=== PATIENT | female | born 1995 | race Caucasian/White ===

== ENCOUNTER 2020-11-26 20:23 | Inpatient (IN) | payer MEDICARE, SELFPAY ==
[2020-11-26 20:31] VITALS: BP 120/74; PULSE 72; RESP 18; TEMP 36.8; O2SAT 100; BMI 23.9
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
--- NOTE | 2020-11-26 20:32 | ECG_ITS ---
[facility] Test Date: 2020-11-26 Pat Name: Luz Maria Knott Department: Room: Gender: Female Compensation Intern: : 1995 Requested By: Miky Juarez Order Number: [id number] Derian MD: Elena Shelton M.D. Measurements Intervals [place] Rate: 64 P: -19 NV: 196 QRS: 52 QRSD: 88 T: 41 QT: 394 QTc: 409 Interpretive Statements SINUS RHYTHM POSSIBLE RIGHT VENTRICULAR CONDUCTION DELAY [RSR (QR) IN V1/V2] No previous ECG available for comparison Electronically Signed On 11-26-2020 23:10:04 CDT by Elena Shelton M.D. [id number]
[2020-11-26 20:47] LABS: Basophils # 0.1 10^3/uL (0.0-0.1); Basophils % 0.5 %; Eosinophils # 0.1 10^3/uL (0.0-0.8); Hematocrit 38.9 % (37.0-47.0); Hemoglobin 13.3 g/dL (11.5-15.3); Lymphocytes # 1.5 10^3/uL (0.8-4.8); Lymphocytes % 12.6 %; Mean Corpuscular HGB Conc 34.2 g/dL (30.0-36.0); Mean Corpuscular Hemoglobin 30.3 pg (28.0-34.0); Mean Corpuscular Volume 88.6 fl (81-99); Mean Platelet Volume 9.7 fL (7.4-10.4); Monocytes # 0.6 10^3/uL (0.2-0.9); Monocytes % 5.5 %; Neutrophils # 9.21 10^3/uL (1.8-7.7); Neutrophils % 80.1 %; Nucleated Red Blood Cells % 0 %; Platelet Count 294 10^3/cmm (130-400); Red Blood Count 4.39 10^6/uL (4.1-5.3); Red Cell Distribution Width 12.9 % (12.1-15.1); White Blood Count 11.5 10^3/uL (4.0-10.0)
[2020-11-26 21:13] LABS: Alanine Aminotransferase 8 U/L (0-33); Albumin Level 4.2 g/dL (3.5-5.2); Alkaline Phosphatase 68 IU/L (35-105); Anion Gap 15.8 (5-19); Aspartate Amino Transferase 14 U/L (0-32); Blood Urea Nitrogen 10 mg/dL (6-20); Calcium 8.9 mg/dL (8.5-10.5); Carbon Dioxide 24 mmol/L (22-29); Chloride 100 mmol/L (98-107); Globulin 3.4 g/dL (1.3-4.6); Glomerular Filtration Rate 101.1 mL/min (90-130); Glucose 93 mg/dL (65-115); Osmolality Calculated 281 mOsm/kg (285-295); Potassium 3.8 mmol/L (3.5-5.1); Sodium 136 mmol/L (136-145); Total Bilirubin 0.4 mg/dL (0.15-1.2); Total Protein 7.6 g/dL (6.6-8.7)
[2020-11-26 21:14] LABS: Acetaminophen < 5.0 ug/mL (10-30); Alcohol Level < 10 mg/dL (0-10); Salicylate < 0.3 mg/dL (3-10)
[2020-11-26 21:18] LABS: HCG Qualitative Urine. Negative (Negative)
[2020-11-26 21:26] LABS: Amphetamines Screen Urine Negative (Negative); Barbiturates Screen Urine Negative (Negative); Benzodiazepines Screen Urine Negative (Negative); Cocaine Screen Urine Negative (Negative); Opiate Screen Urine Negative (Negative); PCP Screen Urine Negative (Negative); THC Screen Urine Positive (Negative)
[2020-11-26 23:26] VITALS: RESP 18; TEMP 36.8; O2SAT 100
[2020-11-27] MEDS: quetiapine 100 mg Tablet PO ×2 (00:21→20:48)
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
[2020-11-27 05:50] VITALS: RESP 18; TEMP 36.8
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
[2020-11-27] MEDS: fluoxetine 20 mg Capsule PO (09:41)
[2020-11-27] MEDS: OLANZapine 5 mg TABLET PO (09:41)
[2020-11-27] MEDS: ARIPiprazole 10 mg Tablet 5 MG PO (09:42)
--- NOTE | 2020-11-27 11:42 | PC.NURSE ---
Patient currently in room lying in bed with eyes closed, resting, respirations even and non-labored.
[2020-11-27 14:00] VITALS: TEMP 37
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
[2020-11-27] MEDS: OLANZapine 5 mg ODT PO (17:56)
[2020-11-27] MEDS: cetylpyridinium Lozenge 1 EACH MUCOUS MEM (19:09)
[2020-11-27 20:23] VITALS: BP 111/76; PULSE 81; RESP 18; TEMP 36.9; O2SAT 99
[2020-11-28 06:00] VITALS: PULSE 85; RESP 18; TEMP 36.6; O2SAT 98
[2020-11-28] MEDS: OLANZapine 5 mg TABLET PO (10:02)
[2020-11-28] MEDS: fluoxetine 20 mg Capsule PO (10:02)
[2020-11-28] MEDS: ARIPiprazole 10 mg Tablet 5 MG PO (10:03)
[2020-11-28 14:00] VITALS: BP 108/75; PULSE 74; RESP 18; TEMP 36.8; O2SAT 98
--- NOTE | 2020-11-28 15:18 | P.PN_ITS ---
Subjective NPU Subjective: Interval history: Patient presents today continuing to that there is any reason for her to be in the hospital. I reviewed the affidavits with her and she did not have a no answer for why she was behaving like that and seemed to suggest that was not an accurate reflection of what was going she continued to endorse a desire to be discharged. We discussed the fact that she is on a 96-hour hold and she has a guardian. Mental Status Exam MSE Comments: This is a well-nourished, well-developed, white male, in hospital scrubs, who is less disheveled with limited eye contact. No abnormal movements. Semi-cooperative with exam in mild distress. Speech was decreased rate and volume. Mood described as fine; affect irritable. Thought process, mostly organized. Thought content: patient denied any suicidal or homicidal ideation, there were no delusions reported or noted, patient denied any auditory or visual hallucinations. Attention and concentration were mostly intact, and memory was somewhat reliable, but none were formally tested. He is alert and oriented times three. Insight and judgment limited. Impulse control impaired. Vitals/I&O/Wt Last Vital Signs Temp 98.3 F 11/28/20 14:00 Pulse 74 11/28/20 14:00 Resp 18 11/28/20 14:00 BP 108/75 11/28/20 14:00 Pulse Ox 98 11/28/20 14:00 Weight last 48 hrs Weight 61.235 kg Data NPU : 11/26/20 20:37 11/26/20 20:37 A&P Additional A&P Information (1) Impulse control disorder in adult: (2) Cannabis abuse: Additional A&P Information This is a 25-year-old, white female, with a long history of mental health issues with multiple hospitalizations with significant issues with impulse control and aggression, self-reported autism with no reported genetic loading for mental health or addiction issues, who presents positive for marijuana, but denying any issues leading to her hospitalization. RECOMMENDATION AND PLAN: 1. Continue current medication. 2. Encourage individual, group, and milieu therapy. 3. Continue q-15 minute checks for safety. 4. Encourage sober living treatment, after discharge, at the highest level of care to which the patient is willing to commit. 5. Will contact guardian to try to get collateral information on this presentation. Involuntary Hold Information 96 Hour Hold: 96 Hour Involuntary Admission: Yes 96 Hour Hold Ending Date: 12/02/20 96 Hour Hold Ending Time: 21:58 Attestations NPU Medical Necessity Statement*: Inpatient hospitalization is medically necessary and the clinically appropriate intervention, at this time. We will monitor medications and make changes as indicated. Likely length of stay is 3-5 days. Coding Level of Care Code Acute Equipment Washer for [facility]
[2020-11-28] MEDS: OLANZapine 5 mg ODT PO (15:44)
--- NOTE | 2020-11-28 17:42 | PC.NURSE ---
PATIENT MOTHER REQUESTS THAT SHE BE INCLUDED IN D/C PLAN OF CARE. SHE REPORTS THAT SHE FEELS THAT THE PATIENT WOULD BENEFIT MORE FROM INJECTABLE MEDICATION AND OUTPATIENT PLANNING. SHE DESIRES A PLAN OF CARE SO THAT THE PATIENT CAN MOST SUCCESSFUL. SHE DESIRES FOR THE PATIENT TO HAVE ASSISTED CARE WITHIN THE [facility] WITH [facility].
[2020-11-28] MEDS: nicotine 2 mg Gum BUCCAL (19:13)
[2020-11-28] MEDS: quetiapine 100 mg Tablet PO (21:15)
[2020-11-28 22:00] VITALS: BP 112/74; PULSE 73; RESP 18; TEMP 37; O2SAT 98
[2020-11-29 06:00] VITALS: BP 134/89; PULSE 65; RESP 17; TEMP 36.7; O2SAT 97
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
[2020-11-29] MEDS: ARIPiprazole 10 mg Tablet 5 MG PO (10:12)
[2020-11-29] MEDS: fluoxetine 20 mg Capsule PO (10:13)
[2020-11-29] MEDS: nicotine 2 mg Gum BUCCAL (10:48)
[2020-11-29 14:00] VITALS: BP 117/83; PULSE 79; RESP 18; O2SAT 96
[2020-11-29] MEDS: OLANZapine 5 mg ODT PO (14:39)
[2020-11-29] MEDS: quetiapine 100 mg Tablet PO (20:50)
[2020-11-29 20:54] VITALS: BP 102/56; PULSE 62; RESP 16; TEMP 37; O2SAT 98
[2020-11-29] MEDS: trazodone 50 mg Tablet PO (23:13)
[2020-11-29] MEDS: hyDROXYzine 25 mg Capsule 50 MG PO (23:13)
--- NOTE | 2020-11-30 03:04 | PC.NURSE ---
PRN vistaril, zyprexa, and trazadone given for anxiety and insomnia. Patient tolerated well. Will continue to monitor.
[2020-11-30 06:00] VITALS: BP 102/56; PULSE 62; RESP 16; TEMP 37; O2SAT 98
--- NOTE | 2020-11-30 09:55 | P.PN_ITS ---
Subjective NPU Subjective: Interval history: Patient presents today continuing to have her focus primarily be on being discharged. She is been in conversation with her mother mother reported to staff that she wanted to make sure all the outpatient connections were appropriate and medications were available at the time of discharge. We discussed the risk benefits and alternatives of meeting with the treatment team in the morning to make sure the about it and if he is across and she understood and reluctantly agreed to proceed as documented in this note. Mental Status Exam MSE Comments: This is a well-nourished, well-developed, white male, in hospital scrubs, who is less disheveled with limited eye contact. No abnormal movements. More cooperative with exam in mild distress. Speech was more normal rate and volume. Mood described as okay; affect less irritable. Thought process, mostly organized. Thought content: patient denied any suicidal or homicidal ideation, there were no delusions reported or noted, patient denied any auditory or visual hallucinations. Attention and concentration were mostly intact, and memory was somewhat reliable, but none were formally tested. He is alert and oriented times three. Insight and judgment limited. Impulse control limited. Vitals/I&O/Wt Last Vital Signs Temp 98.6 F 11/30/20 06:00 Pulse 62 11/30/20 06:00 Resp 16 11/30/20 06:00 BP 102/56 11/30/20 06:00 Pulse Ox 98 11/30/20 06:00 Weight last 48 hrs Weight 61.235 kg Data NPU : 11/26/20 20:37 11/26/20 20:37 A&P Additional A&P Information (1) Impulse control disorder in adult: (2) Cannabis abuse: Additional A&P Information This is a 25-year-old, white female, with a long history of mental health issues with multiple hospitalizations with significant issues with impulse control and aggression, self-reported autism with no reported genetic loading for mental health or addiction issues, who presents positive for marijuana, but denying any issues leading to her hospitalization. RECOMMENDATION AND PLAN: 1. Continue current medication. 2. Encourage individual, group, and milieu therapy. 3. Continue q-15 minute checks for safety. 4. Encourage sober living treatment, after discharge, at the highest level of care to which the patient is willing to commit. Involuntary Hold Information 96 Hour Hold: 96 Hour Involuntary Admission: Yes 96 Hour Hold Ending Date: 12/02/20 96 Hour Hold Ending Time: 21:58 Attestations NPU Medical Necessity Statement*: Inpatient hospitalization is medically necessary and the clinically appropriate intervention, at this time. We will monitor medications and make changes as indicated. Likely length of stay is 1-3 days. Coding Level of Care Code Acute Certified Prosthetist/Orthotist for [facility]
[2020-11-30] MEDS: fluoxetine 20 mg Capsule PO (09:58)
[2020-11-30] MEDS: ARIPiprazole 10 mg Tablet 5 MG PO (09:58)
[2020-11-30] MEDS: nicotine 2 mg Gum BUCCAL ×2 (11:21→18:43)
[2020-11-30 14:00] VITALS: RESP 16
[2020-11-30 21:24] VITALS: BP 110/62; PULSE 60; RESP 17; TEMP 36.8; O2SAT 96
[2020-11-30] MEDS: quetiapine 100 mg Tablet PO (21:26)
[2020-11-30] MEDS: trazodone 50 mg Tablet PO (21:26)
[2020-11-30] MEDS: hyDROXYzine 25 mg Capsule 50 MG PO (21:26)
--- NOTE | 2020-11-30 21:30 | PC.NURSE ---
pt requested sleep and anxiety meds, trazodone 50mg po for sleep and vistaril 50mg po for anxiety given.
--- NOTE | 2020-11-30 21:32 | PC.NURSE ---
charge nurse justin notified of blood pressure
--- NOTE | 2020-12-01 | PC.NURSE ---
pt resting quietly with both eyes closed
--- NOTE | 2020-12-01 02:20 | PC.NURSE ---
Elevated BP 150/100, reported by TRAFFIC POLICE OFFICER, no additional complaints at this time, will notify the physician and recheck this vital sign when she wakes up.
[2020-12-01 06:00] VITALS: BP 106/72; PULSE 66; RESP 16; TEMP 37.1; O2SAT 98
[2020-12-01] MEDS: fluoxetine 20 mg Capsule PO (08:03)
[2020-12-01] MEDS: ARIPiprazole 10 mg Tablet 5 MG PO (08:03)
[2020-12-01] MEDS: nicotine 2 mg Gum BUCCAL (11:09)
[2020-12-01 14:00] VITALS: BP 110/73; PULSE 65; RESP 18; TEMP 36.6; O2SAT 97
--- NOTE | 2020-12-01 14:12 | NPU.GN ---
[facility] Topic:Depression BINGO General Mood of Group: General mood was talkative. Seemed like most everyone in the group was talkative. This group was exceptionable large. They seemed to all want to speak at the same time. This patient came to group on time and dressed appropriate with good hygiene. This patient did participate and did ask questions. She was no too involved but did do a lot of listening.
[2020-12-01] MEDS: hyDROXYzine 25 mg Capsule 50 MG PO (17:51)
--- NOTE | 2020-12-01 17:52 | PC.NURSE ---
Addendum entered by Bekah Monzon LPN 12/01/20 18:40: PRN MED EFFECTIVE NO FURTHER C/O ANXIETY CURRENTLY, PT IN DAY ROOM COLORING PICTURES Original Note: PRN VISTARIL 50 MG GIVEN PO PER PT C/O STATED ANXIETY. WILL CONT TO MONITOR
--- NOTE | 2020-12-01 18:04 | PM.NPN ---
Subjective NPU Subjective: Interval history: Patient presents today reporting that she is feeling a lot better. We discussed her mom's desire that she be on the Abilify injection she will have reports being on the injection previously and not really wanting to be on it again. We had a short discussion about her mother being her guardian and ultimately asked may be needing to force her to take the injection. She agreed to sleep on it and that we would discuss this in the morning after possible chance to talk to her mother. We also discussed the likely plan for discharge in the morning and working with the treatment team for options for follow-up and aftercare. Mental Status Exam MSE Comments: This is a well-nourished, well-developed, white female, in hospital scrubs, with adequate grooming and eye contact. No abnormal movements. More cooperative with exam in no acute distress. Speech was more normal rate and volume. Mood described as okay; affect less irritable. Thought process, mostly organized. Thought content: patient denied any suicidal or homicidal ideation, there were no delusions reported or noted, patient denied any auditory or visual hallucinations. Attention and concentration were mostly intact, and memory was somewhat reliable, but none were formally tested. She is alert and oriented times three. Insight and judgment limited, but improving. Impulse control limited. Vitals/I&O/Wt Last Vital Signs Temp 97.9 F 12/01/20 14:00 Pulse 65 12/01/20 14:00 Resp 18 12/01/20 14:00 BP 110/73 12/01/20 14:00 Pulse Ox 97 12/01/20 14:00 Weight last 48 hrs Weight 61.235 kg Data NPU : 11/26/20 20:37 11/26/20 20:37 A&P Additional A&P Information (1) Impulse control disorder in adult: (2) Cannabis abuse: Additional A&P Information This is a 25-year-old, white female, with a long history of mental health issues with multiple hospitalizations with significant issues with impulse control and aggression, self-reported autism with no reported genetic loading for mental health or addiction issues, who presents positive for marijuana, but denying any issues leading to her hospitalization. RECOMMENDATION AND PLAN: 1. Continue current medication. 2. Encourage individual, group, and milieu therapy. 3. Continue q-15 minute checks for safety. 4. Encourage sober living treatment, after discharge, at the highest level of care to which the patient is willing to commit. Involuntary Hold Information 96 Hour Hold: 96 Hour Involuntary Admission: Yes 96 Hour Hold Ending Date: 12/02/20 96 Hour Hold Ending Time: 21:58 Attestations NPU Medical Necessity Statement*: Inpatient hospitalization is medically necessary and the clinically appropriate intervention, at this time. We will monitor medications and make changes as indicated. Likely length of stay is 1-2 days. Coding Level of Care Code Acute Dormitory Counselor for [facility]
[2020-12-01 21:06] VITALS: BP 128/86; PULSE 83; RESP 17; TEMP 36.7; O2SAT 97
[2020-12-01] MEDS: trazodone 50 mg Tablet PO (22:18)
[2020-12-01] MEDS: acetaminophen 325 mg Tablet 650 MG PO (22:18)
[2020-12-01] MEDS: quetiapine 100 mg Tablet PO (22:19)
[2020-12-02] MEDS: nicotine 2 mg Gum BUCCAL (04:23)
[2020-12-02 06:00] VITALS: BP 128/76; PULSE 86; RESP 18; TEMP 37; O2SAT 97
[2020-12-02] MEDS: fluoxetine 20 mg Capsule PO (08:44)
[2020-12-02] MEDS: ARIPiprazole 10 mg Tablet 5 MG PO (08:44)
--- NOTE | 2020-12-02 10:54 | NPU.GN ---
[facility] Topic: Sail Boat/ Mechanisms General Mood of Group: Luz Maria attended group today and was very talkative. Luz Maria was in good spirits and was making things to put in her hair out of paper. She was very artistic today. Luz Maria was very talkative with this bid writer. Luz Maria seemed in good spirits today.
--- NOTE | 2020-12-02 12:58 | DCPLANNER ---
IMM completed on 12/02/2020 @ 0081. Copy of rights given to pt.
[2020-12-02 14:00] VITALS: BP 101/69; PULSE 62; RESP 17; TEMP 36.9; O2SAT 98
[2020-12-02 15:03] VITALS: BP 128/76; PULSE 86; RESP 18; TEMP 37; O2SAT 97
[2020-12-02] MEDS: ARIPiprazole Maintena 400 MG IM (15:25)
--- NOTE | 2020-12-02 15:25 | PC.NURSE ---
AD MAINTENA 400 MG GIVEN ORDERED BY PHYSICIAN. INJECTION GIVEN IN LEFT DELTOID. LOT [id number] Dec 2022
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
== END 2020-12-02 15:36 | disposition home or self-care (01) | DRG 886 ==
LOC: ER 20:33 → NP 22:24
PROVIDERS: Emergency Medicine; Admitting Provider Psychiatry & Neurology Child & Adolescent Psychiatry; Emergency Provider Emergency Medicine; Visit Provider Psychiatry & Neurology Psychiatry
DX: F63.9 Impulse disorder, unspecified (principal); F12.10 Cannabis abuse, uncomplicated
CPT/HCPCS: 80053; 80306; 80307; 81025; 85025; 90715; 93005; 96372; 97150; 97165; 99285

== ENCOUNTER → 2021-01-12 13:17 | Outpatient (BNVA) | payer MEDICARE, SELFPAY | PROVIDERS: Visit Provider Family Medicine | DX: J02.9 Acute pharyngitis, unspecified (principal); F63.9 Impulse disorder, unspecified; F17.200 Nicotine dependence, unspecified, uncomplicated | CPT/HCPCS: 87071; 87880 ==

== ENCOUNTER → 2022-03-11 13:28 | Outpatient (BNVA) | payer MEDICARE, SELFPAY | PROVIDERS: PCP Family Medicine; Visit Provider Family Medicine | DX: Z13.220 Encounter for screening for lipoid disorders (principal); Z13.6 Encounter for screening for cardiovascular disorders; Z13.1 Encounter for screening for diabetes mellitus; Z51.81 Encounter for therapeutic drug level monitoring | CPT/HCPCS: 80053; 80061; 83036; 84443; 85025 ==

== ENCOUNTER → 2023-02-24 12:36 | Outpatient (BNVA) | payer OTHER, SELFPAY | PROVIDERS: PCP Family Medicine; Visit Provider Emergency Medicine | DX: R68.89 Other general symptoms and signs (principal) | CPT/HCPCS: 87400; 87426 ==

== ENCOUNTER → 2023-11-01 08:30 | Outpatient (BNVA) | payer OTHER, SELFPAY | PROVIDERS: PCP Family Medicine; Visit Provider Family Medicine | DX: Z51.81 Encounter for therapeutic drug level monitoring (principal); F31.9 Bipolar disorder, unspecified; Z13.1 Encounter for screening for diabetes mellitus; Z13.6 Encounter for screening for cardiovascular disorders | CPT/HCPCS: 80053; 80061; 84443; 85025 ==

== ENCOUNTER → 2024-06-04 11:00 | Outpatient (BNVA) | payer OTHER, SELFPAY | PROVIDERS: PCP Family Medicine; Visit Provider Family Medicine | DX: Z13.1 Encounter for screening for diabetes mellitus (principal); F31.9 Bipolar disorder, unspecified; Z51.81 Encounter for therapeutic drug level monitoring; Z78.9 Other specified health status; Z68.33 Body mass index [BMI] 33.0-33.9, adult | CPT/HCPCS: 80048; 83036; 85025 ==

== ENCOUNTER → 2024-10-01 15:28 | Outpatient (BNVA) | payer OTHER, SELFPAY | PROVIDERS: PCP Family Medicine; Visit Provider Nurse Practitioner | DX: J02.9 Acute pharyngitis, unspecified (principal) | CPT/HCPCS: 87071; 87880 ==

== ENCOUNTER → 2024-10-31 15:15 | Outpatient (BNVA) | payer OTHER, SELFPAY | PROVIDERS: PCP Family Medicine; Visit Provider Family Medicine | DX: Z12.4 Encounter for screening for malignant neoplasm of cervix (principal) | CPT/HCPCS: 87624 ==

== ENCOUNTER 2025-01-24 05:56 | Day surgery (SDC) | payer OTHER, SELFPAY ==
[2025-01-24] VITALS (12 sets, daily range): BP systolic 125–157; BP diastolic 87–109; PULSE 71–89; RESP 15–18; TEMP 36.1–36.3; O2SAT 98–100; BMI 33.5
--- NOTE | 2025-01-24 06:46 | P.ANESASSM_ITS ---
Pre-Anesthetic Assessment Height/Weight: Height 1.68 m Weight 94.347 kg Temp Pulse Resp BP Pulse Ox O2 Del Method 97.0 F L 72 18 137/87 99 Room Air 01/24/25 06:14 01/24/25 06:14 01/24/25 06:14 01/24/25 06:14 01/24/25 06:14 01/24/25 06:14 Operation Date: 01/24/25 07:10 Proposed Procedures p Endocervical Curettage 32704 R87.619 R20.3(Not Applicable) - Alpesh Villasenor MD Familial anesthetic complications: None Was Beta Allyson taken within 24 hours: N/A Was Clonidine taken within 24 hours: N/A Last intake: Intake Last Liquid Date 01/23/25 Last Liquid Time 22:00 Last Solid Date 01/23/25 Last Solid Time 22:00 Social Tobacco and No alcohol Exam alert, oriented x 3, clear to auscultation bilaterally and regular rate & rhythm Anesthetic Plan ASA status: 2 Anesthesia: General Risk of > 500 ml blood loss (7ml/kg in children): No Other Pertinent Information Hx of syncopal episode with prolonged QT due to dehydration a few years ago, no repeat instances and all subsequent EKGs normal Medications/Allergies Home Medications ?Medication ?Instructions ?Recorded ?Confirmed ?Last Taken ?Type lorazepam 0.5 mg tablet (Ativan) 0.5 mg PO DAILY 30 da ys #30 tabs 08/21/24 01/23/25 Unknown Rx quetiapine 100 mg tablet 100 mg PO QDAY 90 days #90 t abs 08/21/24 01/23/25 01/22/25 Rx aripiprazole 30 mg tablet 30 mg PO .qhs 90 days #90 ta bs 09/20/24 01/23/25 01/22/25 Rx Allergies Allergy/AdvReac Type Severity Reaction Status Date / Time azithromycin Allergy Unknown Verified 01/23/25 10:39 cephalexin (From Keflex) Allergy Unknown Verified 01/23/25 10:39 Current Medications Generic Name Dose Route Start Last Admin Trade Name Freq PRN Reason Stop Dose Admin Sodium Chloride 1,000 mls @ 30 mls/hr 01/24/25 06:15 01/24/25 06:35 Sodium Chloride 0.9% IV 01/25/25 06:14 30 mls/hr .Q24H JAS Administration PFSH Anesthesia Medical History (Updated 11/07/24 @ 13:09 by Ambar Solano MD) Bipolar disorder with psychotic features Autism Bipolar disorder History of seizure Psychiatric care Family History Grandfather Cancer maternal- lung cancer Hypertension maternal Stroke Grandmother Cancer maternal- lung Diabetes maternal great grandmother Denies family history of Clotting disorder Bleeding disorder Social History Smoking and tobacco/nicotine status: current every day tobacco/nicotine user e- cigarettes E-Cigarette Details: vaporizer device Quit status (tobacco/nicotine): not considering quitting
--- NOTE | 2025-01-24 07:15 | W.PM.OPSUD ---
Surgery/Procedure H&P Update DATE OF PROCEDURE: January 24, 2025 DATE H&P PERFORMED: 12/07/24 H&P UPDATE INFORMATION: I have reviewed H&P completed within last 30 days, Changes to prior documentation as noted here (Heart and lungs examined preop and within normal range. No vaginal bleeding.) and Risks and benefits of the procedure reviewed PREOP DIAGNOSIS: Abnormal endocervical cells, poor tolerance to pain PRIMARY INDICATION FOR PROCEDURE: Galandular dysplasia ro adenocarcinoma PLANNED PROCEDURE: Operation Date: 01/24/25 07:10 Proposed Procedures p Endocervical Curettage 58149 R87.619 R20.3(Not Applicable) - Alpesh Villasenor MD Related Problem List Diagnoses 1. Atypical glandular cells of undetermined significance (RUBEN) on cervical Pap smear: 2. Low pain threshold: 3. Atypical endocervical cells on Pap smear: 4. SOFIYA (generalized anxiety disorder):
[2025-01-24] MEDS: lidocaine-epi 2% PF 1:200,000 20 mL SDV XX (07:56)
[2025-01-24] MEDS: doxycycline 100 MG in sodium chloride 0.9% (plus) 100 ML IV (07:58)
--- NOTE | 2025-01-24 08:44 | PM.OP2 ---
Brief Operative Note Date of procedure: 01/24/25 Estimated blood loss (mL): 60 Complications: None
--- NOTE | 2025-01-24 08:58 | PM.OP2 ---
Brief Operative Note Date of procedure: 01/24/25 Pre-op diagnosis: Endocervical glandular dysplasia, low pain tolerance Post-op diagnosis: same (additional cervical dysplasia/lesion) Procedure Done: Cervical 12 o clock bx of lesion, endocervical and seperate endometrial sampling by curettage. Surgeon: Alpesh Villasenor Estimated blood loss (mL): 60 Complications: None Post-op Plan: To recovery, and wait for pathology Dx. Condition: stable Disposition: same day
[2025-01-24 14:44] LABS: OR HCG Qualitative Urine Negative (Negative)
--- NOTE | 2025-01-24 15:33 | ANE.PACU2 ---
Inpatient post-anesthesia follow up: Airway intact: Yes Vital signs: Temperature 97.4 F Pulse Rate 72 Respiratory Rate 15 Blood Pressure 139/94 Pulse Oximetry 100 Oxygen Delivery Me thod Room Air Oxygen Flow Rate Fraction of Inspir ed Oxygen Hydration adequate: Yes Nausea and vomiting: No Pain level: 1 Mental status: Baseline
--- NOTE | 2025-01-24 17:45 | P.OP_ITS ---
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 Due to low pain tolerance and patient declining office- based colposcopy, the decision was made to proceed with examination under anesthesia with endocervical curettage and directed biopsies as indicated. 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 Examination under anesthesia 2. Endocervical curettage 3. Endometrial curettage 4. Ectocervical biopsy SURGEON: Leslie JIMENEZ NIPPING MACHINE OPERATOR: [Silica Spray Mixer Name] ANESTHESIA: General anesthesia ESTIMATED BLOOD LOSS: 60 mL COMPLICATIONS: None SPECIMENS: 1. Endocervical curettings 2. Endometrial curettings 3. 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 Due to low pain tolerance and patient declining office-based colposcopy, the decision was made to proceed with examination under anesthesia with endocervical curettage and directed biopsies as indicated. PROCEDURE: The patient was brought to the operating room and placed in the dorsal lithotomy position. After adequate general anesthesia was obtained, a time-out was performed confirming correct patient, procedure, and site. The patient was prepped and draped in the usual sterile fashion. A speculum was placed in the vagina and the cervix was visualized. Cervix was friable to touch. An ectocervical biopsy was obtained at the 12:00 position using a sharp knife technique. Hemostasis was achieved with direct pressure and application of Monsel's solution. Endocervical curettage was then performed using a Kris-Youngabiel curette with both in-and-out and rotating motions to ensure comprehensive sampling of the full circumference of the endocervical canal. The curettage specimen, along with tissue, mucus, and blood collected after curettage, was submitted for histologic examination. Endometrial curettage was subsequently performed and the specimen was submitted separately for pathologic evaluation. Final inspection of the cervix confirmed adequate hemostasis. The speculum was removed. The patient tolerated the procedure well without complications. DISPOSITION: The patient awoke from anesthesia without difficulty and was transferred to the recovery room in stable condition. She is expected to be discharged home the same day with standard post-procedure instructions. Pathology results will be reviewed upon receipt and the patient will be contacted with results and further management recommendations. Related Problem List Diagnoses 1. Atypical glandular cells of undetermined significance (RUBEN) on cervical Pap smear:
== END 2025-01-24 10:10 | disposition home or self-care (01) ==
PROVIDERS: PCP Family Medicine; Visit Provider Obstetrics & Gynecology
PROC: (CPT 58558; principal; 2025-01-24 07:00)
PROC: (CPT 58100; 2025-01-24 07:00)
DX: N87.9 Dysplasia of cervix uteri, unspecified (principal); F31.9 Bipolar disorder, unspecified; Z80.1 Family history of malignant neoplasm of trachea, bronchus and lung; F17.290 Nicotine dependence, other tobacco product, uncomplicated; F41.9 Anxiety disorder, unspecified
CPT/HCPCS: 58558; 81025; 88305; A4216; J1100; J1885; J2250; J2371; J2405; J2704; J3010; J3490; J7030; J9999